=== PATIENT | female | born 1980 | race Caucasian/White ===

== ENCOUNTER → 2016-10-31 | Outpatient (CLI) | payer BC | END | disposition home or self-care (01) | LOC: CFH 12:30 | PROVIDERS: ATTEND Physician Assistant | DX: D24.1 Benign neoplasm of right breast (principal); N60.82 Other benign mammary dysplasias of left breast; E10.9 Type 1 diabetes mellitus without complications; Z80.3 Family history of malignant neoplasm of breast | CPT/HCPCS: 76642; G0204 ==